=== PATIENT | male | born 1970 | race Caucasian/White ===

== ENCOUNTER 2023-09-19 17:33 | Emergency (ER) | payer BC ==
[~2023-09-19] VITALS: Ht 177.8 cm; Wt 80.0 kg
[2023-09-19 17:36] VITALS: BP 160/90; PULSE 107; RESP 16; TEMP 98.8; O2SAT 98
[2023-09-19 18:58] LABS: BASOPHILS % 0.3 % (0.0-2.0); EOSINOPHILS % 0.3 % (0.0-5.0); HEMATOCRIT. 41.1 % (42.0-52.0); HEMOGLOBIN. 13.7 g/dL (14.0-18.0); LYMPHOCYTES % 14.3 % (20.0-50.0); MEAN CORPUSCULAR HEMOGLOBIN 28.4 pg (28.0-32.0); MEAN CORPUSCULAR HGB CONC 33.3 g/dL (31.0-37.0); MEAN CORPUSCULAR VOLUME 85.4 fL (80.0-94.0); MEAN PLATELET VOLUME 7.9 fl (7.4-10.4); NEUTROPHILS % 80.1 % (40.0-76.0); PLATELET 225 x1000/uL (130-400); RED BLOOD CELL COUNT 4.82 mill/uL (4.7-6.1); RED CELL DISTRIBUTION WIDTH 15.7 % (11.6-14.6); WHITE BLOOD COUNT 9.9 x1000/uL (4.5-11.0)
[2023-09-19 19:03] LABS: CHLORIDE 110 mEq/L (98-107); POTASSIUM 3.7 mEq/L (3.5-5.1); SODIUM 145 mEq/L (136-145)
[2023-09-19 19:04] LABS: CALCIUM 8.7 mg/dL (8.7-10.4); CARBON DIOXIDE 24 mEq/L (21-32)
[2023-09-19 19:09] LABS: CREATININE 0.7 mg/dL (0.6-1.3); GLUCOSE 138 mg/dL (70-105); UREA NITROGEN BLOOD 13 mg/dL (9-23)
[2023-09-19 19:19] LABS: ETHANOL BLOOD 329 mg/dL (<10)
== END 2023-09-19 21:38 | disposition home or self-care (01) ==
LOC: ER 17:33
DX: F10.129 Alcohol abuse with intoxication, unspecified (principal); Z88.5 Allergy status to narcotic agent; Y90.8 Blood alcohol level of 240 mg/100 ml or more
CPT/HCPCS: 36415; 80048; 80320; 85025; 99283; G0480